=== PATIENT | female | born 1960 | race Caucasian/White ===

== ENCOUNTER 2016-10-22 16:25 | Emergency (ER) | payer OTHER ==
--- NOTE | 2016-10-22 16:57 | XRAY Preliminary Report ---
Exam: XR Ankle 3 View LT IMPRESSION: Avulsion fracture of inferior fibula displaced by less than 1 mm. [facility] SITE ID: [id number]
--- NOTE | 2016-10-22 16:59 | XRAY Report ---
EXAM: LEFT ANKLE RADIOGRAPHY EXAM DATE: 10/22/2016 04:46 PM. CLINICAL HISTORY: Slip and fall, left lateral malleolar pain. COMPARISON: None. TECHNIQUE: 3 views. FINDINGS: Bones: There is a fracture of the inferior aspect of the fibula. There is an avulsion fracture fragme nt measuring 6 x 4 mm displaced inferiorly by less than 1 mm. Joints: Joint space and alignment appear satisfactory. Soft Tissues: There is soft tissue swelling. IMPRESSION: Avulsion fracture of inferior fibula displaced by less than 1 mm. [facility] Referring Provider Line: [phone] SITE ID: [id number]
--- NOTE | 2016-10-22 18:51 | ED Physician Documentation ---
History of Present Illness - Stated complaint Stated Complaint: LT ANKLE INJ - Chief complaint Chief Complaint: Ext Problem - History obtained from History obtained from: Patient - Additonal information Additional information: Patient is a healthy 56-year-old female without any significant past medical history complains of pain in the right lateral malleolus area. Injury occurred earlier today when she twisted the ankle. She denies any other injury to her knee, upper lower extremity, foot or calcaneal area. All of the pain and tenderness and swelling is located laterally. Review of systems: For pertinent positive and negatives in the review of systems please see the history of present illness, otherwise all other systems have been reviewed and are negative. Dragon disclaimer: Parts of this medical record were created using voice recognition technology. Because of the inherent limitations of this system, occasional same sounding word substitutions do occur and persist despite proofreading. Please read the document for context. Review of Systems Musculoskeletal: reports: Extremity pain, Joint pain, Extremity swelling, Joint swelling, Pain with weight bearing PD PAST MEDICAL HISTORY - Past Medical History Past Medical History: No - Past Surgical History Past Surgical History: Yes General: Cholecystectomy - Present Medications Home Medications: Ambulatory Orders Medication Instructions Recorded Confirmed Ibuprofen 600 mg PO TID PRN #14 tablet 10/22/16 Tramadol HCl 50 mg PO Q8HR PRN #14 tablet 10/22/16 - Allergies Allergies/Adverse Reactions: Allergies Allergy/AdvReac Type Severity Reaction Status Date / Time ampicillin Allergy Edema Verified 10/22/16 16:33 codeine Allergy Nausea Verified 10/22/16 16:33 - Social History Does the pt smoke?: No Smoking Status: Never smoker Does the pt drink ETOH?: No Does the pt have substance abuse?: No PD ED PE NORMAL - General General: Alert and oriented X 3, No acute distress, Well developed/nourished - Extremities Extremities: Other (On examination the patient has soft tissue swelling and tenderness over the lateral malleolus. There is no medial malleolar tenderness. The calcaneal area, midfoot, and forefoot are clinically normal as well as the proximal lower extremity. There is no medial tenderness or discoloration) Results - Vitals Vitals: Vital Signs - 24 hr 10/22/16 16:30 Temperature 36.6 C Heart Rate 65 Respiratory 20 Rate Blood Pressure 153/69 H O2 Saturation 100 Oxygen O2 Source Room air PD MEDICAL DECISION MAKING - ED course Complexity details: reviewed old records, reviewed results ED course: Patient is a pleasant a 56-year-old female presents with a twisting injury to the left ankle. On examination she has lateral malleolar tenderness and soft tissue swelling. Medially there is no abnormalities. Radiographs are obtained and show a small distal fibular fracture without displacement presumably near the insertion of the talofibular ligament. The patient was placed in a short leg posterior mold and was issued crutches. We will have her follow-up with orthopedics and she is to remain toe-touch weightbearing as needed. Disposition: To home Clinical impression: 1. Distal fibular fracture left without displacement Departure - Departure Disposition: 01 Home, Self Care Clinical Impression: Fibula fracture Qualifiers: Encounter type: initial encounter Fibula location: distal Fracture type: closed Fracture morphology: other fracture Condition: Good Instructions: ED Fx Lower Ext, ED Fx Ankle Lateral Malleolus Follow-Up: Mau Rapp MD [Provider Admit Priv/Credential] - Prescriptions: Tramadol HCl 50 mg PO Q8HR PRN #14 tablet PRN Reason: Pain Ibuprofen 600 mg PO TID PRN #14 tablet PRN Reason: Pain
[2016-10-22] MEDS ORDERED: ACETAMINOPHEN 325 MG TABLET PO ONE (19:14)
[2016-10-22 19:29] VITALS: BP 178/81
== END 2016-10-22 19:20 | disposition home or self-care (01) ==
LOC: ED 16:25
DX: S82.402A Unspecified fracture of shaft of left fibula, initial encounter for closed fracture (principal); X50.1XXA Overexertion from prolonged static or awkward postures, initial encounter
CPT/HCPCS: 29515; 73610; 99283; A9270

== ENCOUNTER 2021-06-24 09:17 | Outpatient (CLI) | payer OTHER ==
[2021-06-24 12:48] LABS: ALBUMIN 4.2 g/dL (3.2-5.5); ALBUMIN/GLOBULIN RATIO 1.2 (1.0-2.2); ALKALINE PHOSPHATASE 136 IU/L (42-121); ALT ALANINE AMINOTRANSFERASE 25 IU/L (10-60); AST ASPARTATE AMINOTRANSFERASE 25 IU/L (10-42); BILIRUBIN,TOTAL 0.6 mg/dL (0.2-1.0); BUN - BLOOD UREA NITROGEN 15 mg/dL (6-20); CALCIUM 9.9 mg/dL (8.5-10.3); CARBON DIOXIDE - CO2 24 mmol/L (21-32); CHLORIDE 107 mmol/L (101-111); CHOL/HDL RATIO 3.2 (<4.4); CHOLESTEROL 200 mg/dL; CREATININE 0.3 mg/dL (0.4-1.0); GFR - MDRD 225 (>89); GLUCOSE 104 mg/dL (70-100); HDL CHOLESTEROL 62 mg/dL; LDL CHOLESTEROL,CALCULATED 120 mg/dL; LDL/HDL RATIO 1.9 (<4.4); POTASSIUM 3.2 mmol/L (3.5-5.0); SODIUM 141 mmol/L (135-145); TOTAL PROTEIN 7.8 g/dL (6.7-8.2); TRIGLYCERIDES 90 mg/dL; VLDL CHOLESTEROL 18 mg/dL
== END 2021-06-24 09:18 | disposition home or self-care (01) ==
LOC: LAB.N 09:17
PROVIDERS: ATTEND Family Medicine
DX: Z00.00 Encounter for general adult medical examination without abnormal findings (principal); M81.0 Age-related osteoporosis without current pathological fracture; E78.5 Hyperlipidemia, unspecified; E55.9 Vitamin D deficiency, unspecified
CPT/HCPCS: 36415; 80053; 80061; 82306; 83721; 84443